=== PATIENT | male | born 1995 | race African-American/Black ===

== ENCOUNTER → 2019-09-10 | Emergency (ER) | payer OTHER | END | disposition left against medical advice (07) | LOC: ER 08:51 | DX: Z53.20 Procedure and treatment not carried out because of patient's decision for unspecified reasons (principal) ==

== ENCOUNTER 2019-10-28 14:23 | Inpatient (IN) | payer OTHER | END 2019-11-09 12:29 | disposition home or self-care (01) | DRG 788 | LOC: OB/GYN 14:23 → EDSEX 14:23 → OB/GYN 11-09 12:29 → EDBD 11-09 12:29 | PROC: 10D00Z1 Extraction of Products of Conception, Low, Open Approach (ICD-10-PCS; principal; 2019-10-28) | PROC: 4A0HXFZ Measurement of Products of Conception, Cardiac Rhythm, External Approach (ICD-10-PCS; 2019-10-28) | DX: O82 Encounter for cesarean delivery without indication (principal); O34.211 Maternal care for low transverse scar from previous cesarean delivery; Z3A.38 38 weeks gestation of pregnancy; Z37.0 Single live birth ==

== ENCOUNTER 2019-11-15 10:22 | Inpatient (IN) | payer OTHER | END 2019-11-15 10:40 | disposition E | LOC: OB/GYN 10:22 → EDSEX 10:40 → OB/GYN 10:40 | DX: I21.A1 Myocardial infarction type 2 (principal) ==